=== PATIENT | female | born 1945 | race Caucasian/White ===

== ENCOUNTER → 2016-11-18 | Day surgery (SDC) | payer MEDICARE, BC ==
[~2016-11-18] MED LIST: ASPI81TA45 PO; DEXAMETHASONE SOD PHOS 4 MG/ML VIAL ONE; EPINEPHrine HCL (1:1000) 1 MG/ML VIAL ONE; FLUC200T63 PO; HYDR-3580 PO; HYZA50TA2 PO; LACTATED RINGER'S 1000 ML INJ 1,000 ML ONE; LEVO.05 PO; LORA-392 PO; METO50CR PO; MIDAZOLAM HCL 2 MG/2 ML VIAL ONE; MOXIFLOXACIN 0.5% OPHT SOLN 3 ML BTL ONE; ONDANSETRON HCL 4 MG/2 ML VIAL IV PUSH ONE; PHENYLEPHRINE HCL 10% OPTH SOLN 5 ML BTL ONE; PROPOFOL 200 MG/20 ML AMP IV ONE; SIMV40TA PO; SODIUM CHLORIDE 0.9% INJ 10 ML ONE; TETRACAINE 0.5% OPTH SOLN 15 ML BTL ONE; TOBRAMYCIN/DEXAMETHASONE OPTH OINT 3.5 GM TUBE ONE; ZOLP10TA3 PO; ceFAZolin INJ 1,000 MG VIAL ONE; prednisoLONE ACETATE 1% OPHT SUSP 5 ML BTL ONE
--- NOTE | 2016-11-24 05:47 | TN ---
cc: MOI JAQUEZ MD DATE OF SURGERY November 18, [address] Moi Jaquez PREOPERATIVE DIAGNOSIS Full-thickness macular hole right eye. POSTOPERATIVE DIAGNOSIS Full-thickness macular hole right eye. PROCEDURE Pars plana vitrectomy, closure of full-thickness macular hole, removal of ILM/ERM, insertion of 18% SF6 gas right eye. COMPLICATIONS None. BLOOD LOSS Less than [address] Hamlin general. INDICATIONS FOR PROCEDURE This is a delightful patient who had significant worsening vision of her right eye. The patient presented and was found to have a full-thickness macular hole. The patient elected for surgical correction after review of the risks, benefits and alternatives. PROCEDURE NOTE After informed consent was obtained, the patient was brought to the operating room and general anesthesia was established. The right eye was prepped and draped in sterile fashion with Betadine in the conjunctival fornix. A three-port pars plana vitrectomy was established with self-retaining infusion cannula. Core vitreous was evacuated and posterior vitreous detachment was ensured. The ILM/ERM complex was highlighted with ICG and removed with ILM forceps. Scleral depression examination revealed no untreated retinal holes, tears or detachments. Air-fluid exchange was carried out and macular hole noted to be closed. 18% SF6 gas was instilled. The trocars were removed and sclerotomies closed. Subconjunctival injection of Ancef and dexamethasone were given. The patient was brought to the recovery room in stable condition and will maintain a prone position and continue followup with [facility] for her postoperative care. Moi Jaquez MD KW/SSB /11:40 PM /5:41 AM
== END | disposition home or self-care (01) ==
LOC: ESDC 07:41
PROVIDERS: ATTEND Ophthalmology
DX: H35.341 Macular cyst, hole, or pseudohole, right eye (principal)
CPT/HCPCS: 00145; 67042; J0171; J0690; J1100; J2250; J2405; J3010; J7120